=== PATIENT | male | born 1980 | race Caucasian/White ===

== ENCOUNTER 2021-08-24 20:19 | Emergency (ER) | payer OTHER, SELFPAY ==
--- NOTE | ~2021-08-24 | XR_ITS ---
EXAMINATION: XR FOOT, RIGHT CLINICAL INFORMATION: Pain status post injury COMPARISON: None TECHNIQUE: AP, lateral, and oblique views of the right foot. FINDINGS: The bones and soft tissues are normal. No fracture. Alignment is anatomic. Joint spaces are maintained. XR/XR foot RT min 3V IMPRESSION: Normal right foot.
[2021-08-24 20:48] VITALS: BP 126/83; PULSE 61; RESP 18; TEMP 36.8; O2SAT 98; BMI 20.8
--- NOTE | 2021-08-24 22:08 | ED_ITS ---
HPI - Extremity Injury (Lower) General Chief Complaint: Extremity Injury, Lower Stated Complaint: right foot inj Time Seen by Provider: 08/24/21 22:00 Source: patient Mode of arrival: ambulatory History of Present Illness HPI Narrative: 40-year-old male with no significant past medical history presenting to the ED complaining right foot pain s/p twisting injury while playing with children in the pool this afternoon. Denies direct fall, numbness, tingling, weakness, injury to other area, head trauma or LOC MD complaint: foot injury Onset (ago): hour(s) Related Data Previous Rx's Medication Instructions Recorded naproxen 500 mg tablet 500 mg PO BID PRN 10 Days #20 tab 08/24/21 Allergies Allergy/AdvReac Type Severity Reaction Status Date / Time No Known Allergies Allergy Verified 08/24/21 20:48 Review of Systems Review of Systems: Constitutional: No Fever, No Chills ENT/Mouth: No Ear Pain, No Nasal Congestion, No sore throat, No Rhinorrhea, No Swallowing Difficulty Cardiovascular: No Chest Pain, No SOB Respiratory: No Cough, No Sputum Gastrointestinal: No Nausea, No Vomiting, No Diarrhea, No Constipation, No Abdominal pain Genitourinary: No Dysuria, No Urinary Frequency, No Flank Pain Musculoskeletal: + joint pain, No Myalgias, No Joint Swelling Skin: No Skin Lesions, No rash Neuro: No Weakness, No Numbness, No Paresthesias, no head trauma or LOC Yes all other systems are reviewed and are negative [facility] Past Medical History Attestation statement: The following information was validated with the patient. Social History Social History Advance Directives: No Advance Directives Information Provided: No Physical Exam Vital Signs: Vital Signs: Last Vital Signs Temp 98.3 F 08/24/21 20:48 Pulse 61 08/24/21 20:48 Resp 18 08/24/21 20:48 BP 126/83 08/24/21 20:48 Pulse Ox 98 08/24/21 20:48 BMI result Body Mass Index 20.8 Const: General: cooperative, healthy appearing and no acute distress Orientation/consciousness: patient oriented x3 Limitations: no limitations HEENT: Head: Yes normal to inspection and Yes atraumatic Ears: hearing grossly normal bilaterally General nose exam: Normal external nose present Face and sinus: Yes normal facial exam Eyes: General: appearance normal, both eyes and all related structures EOM: EOMs intact bilaterally Neck: Neck: Yes normal visual inspection and Yes no meningeal signs Resp: Effort & Inspection: normal respiratory effort and no respiratory distress Cardio: Rate: regular rate Heart sounds: S1 normal heart sound present and S2 normal heart sound present Peripheral pulses: dorsalis pedis present Skin: Rashes: no rashes Wounds: no wounds Neuro: General: patient oriented x3, tone normal and no meningeal signs Gait exam (Neuro): Normal gait present Extrem: Other: Right foot without noted deformity, swelling, erythema or ecchymosis. No crepitus. Tender to palpation greatest in medial aspect. Limited ROM to toes secondary to pain. Ankle/tib-fib/knee nontender and with full range of motion intact. Ambulating with limping gait General: Yes normal to inspection Course Course Course Narrative: XR foot RT min 3V IMPRESSION: Normal right foot. >> postop shoe applied for comfort/stability. MDM - Extremity Injury (Lower) MDM Narrative Medical decision making narrative: 40-year-old male with no significant past medical history presenting to the ED complaining right foot pain s/p twisting injury while playing with children in the pool this afternoon. On exam vital signs stable, NAD, nontoxic appearing, physical exam as above. Concern for foot fracture versus sprain. Plan: X-ray Medical Records Attestation: I reviewed the patient's medical records. Lab Data Attestation: I reviewed the patient's lab results. Procedures Orthopedic Splinting/Casting Injury #1: Side: right Lower Extremity Injury Location: foot Lower Extremity Immobilizer: post-op shoe Discharge Plan Discharge Clinical Impression: Foot sprain Qualifiers: Encounter type: initial encounter Laterality: right Qualified Code(s): S93.601A - Unspecified sprain of right foot, initial encounter Patient Disposition: Home, Self-Care Instructions: Foot Sprain (ED) Additional Instructions: Your x-rays unremarkable. Wear postop shoe for comfort and stability. You may bear weight on right foot however I would limit the next couple days. Rest. Ice and elevate. Take Tylenol and Naproxen for pain and swelling. If symptoms persist or worsen, pain becomes unbearable please follow-up with Podiatry Prescriptions: New naproxen 500 mg tablet 500 mg PO BID PRN (Reason: pain) 10 Days Qty: 20 0RF Referrals: Shaun Jones MD [Physician] - 2 weeks (as needed) Stand Alone Forms: Work/School Release
[2021-08-24] MEDS: Ketorolac Tromethamine 30 MG/ML VIAL IM (22:31)
== END 2021-08-24 22:38 | disposition home or self-care (01) ==
PROVIDERS: Emergency Provider Emergency Medicine Emergency Medical Services; PCP Nurse Practitioner Family
DX: S93.601A Unspecified sprain of right foot, initial encounter (principal); S93.401A Sprain of unspecified ligament of right ankle, initial encounter; M79.671 Pain in right foot; X50.1XXA Overexertion from prolonged static or awkward postures, initial encounter; Y93.9 Activity, unspecified; Y92.9 Unspecified place or not applicable; Y99.9 Unspecified external cause status
CPT/HCPCS: 29515; 73630; 96372; 99283; 99284; J1885